=== PATIENT | female | born 1950 | race African-American/Black ===

== ENCOUNTER 2018-08-03 06:52 | Day surgery (SDC) | payer OTHER ==
[~2018-08-03] VITALS: Ht 152.4 cm; Wt 39.0 kg
[2018-08-03] VITALS (8 sets, daily range): BP systolic 102–131; BP diastolic 71–88
--- NOTE | 2018-08-03 06:51 | Anethesia Preoperative Eval ---
Anesthesia Pre-op PMH/ROS General Date of Evaluation: Aug 03, 2018 Time of Evaluation: 06:49 Anesthesiologist: helen ASA Score: ASA 3 Mallampati Score Class I : Soft palate, uvula, fauces, pillars visible Class II: Soft palate, uvula, fauces visible Class III: Soft palate, base of uvula visible Class IV: Only hard plate visible Mallampati Classification: Class II Surgeon: bernarda Diagnosis: weight loss, gerd Surgical Procedure: egd/colonoscopy Anesthesia History: none Family History: no anesthesia problems Allergies: Coded Allergies: RANITIDINE (Verified Allergy, Mild, 08/03/18) DIARRHEA Medications: see eMAR Patient NPO?: Yes Past Medical History Gastrointestinal/Genitourinary: Reports: GERD, other - partial hysterectomy Endocrine: Reports: hypothyroidism PSxH Narrative: partial hysterectomy Anesthesia Pre-op Phys. Exam Physician Exam Last Vital Signs Date Time Temp Pulse Resp B/P (MAP) Pulse Ox O2 Delivery O2 Flow Rate FiO2 08/03/18 07:27 Room Air 08/03/18 07:23 97.0 18 18 128/80 100 Constitutional: NAD Neurologic: CN 2-12 intact Cardiovascular: RRR Respiratory: CTA Gastrointestinal: S/NT/ND Airway Exam Mallampati Score: Class II MO: full Neck: supple TMD: 2fb ROM: full Teeth: missing, broken Anesthesia Pre-op A/P Risk Assessment & Plan Assessment: asa3 Plan: mac Status Change Before Surgery: No Pre-Antibiotics Drug: Paris Perla MD Aug 03, 2018 06:51
[~2018-08-03 06:52] MED LIST: LR 1000ml 1,000 ML IVLG SCH; NASONEX17 GM NASAL; PRILOSEC20 MG ORAL; ROBITUSSIN COU118 M4 PO; SYNTHROID75 MCG ORAL
[2018-08-03] MEDS ORDERED: Atropine Inj 1mg/10ml Syr IV PRN (07:00)
[2018-08-03] MEDS ORDERED: fentaNYL 100 mcg/2 mL IV PRN (07:00)
[2018-08-03] MEDS ORDERED: LR 1000ml 1,000 ML IVLG SCH (07:00)
[2018-08-03] MEDS ORDERED: DiphenhydrAMINE 50mg/ml Inj IVP PRN (07:00)
[2018-08-03] MEDS ORDERED: Midazolam 2mg/2ml Inj IVP PRN (07:00)
[2018-08-03] MEDS ORDERED: PEPCID AC20 M2 PO (07:29)
[2018-08-03] MEDS ORDERED: Lidocaine 1% MPF 10mg/ml 5ml ONE (08:00)
[2018-08-03] MEDS ORDERED: LR 1000ml ONE (08:00)
[2018-08-03] MEDS ORDERED: Propofol 200mg/20ml IV ONE (08:00)
--- NOTE | 2018-08-03 08:25 | Pre-Procedure Note/Attestation ---
Pre-Procedure Note/Attestation Complete Prior to Procedure Planned Procedure: not applicable Procedure Narrative: EGD colon Indications for Procedure Pre-Operative Diagnosis: abd pain , weigh loss Attestation I attest that I discussed the nature of the procedure; its benefits; risks and complications; and alternatives (and the risks and benefits of such alternatives ), prior to the procedure, with the patient (or the patient's legal sales donor recruitment representative). I attest that, if there was a reasonable possibility of needing a blood transfusion, the patient (or the patient's legal sales donor recruitment representative) was given the [facility] standardized written summary, pursuant to the [employer] Blood Safety Act ([place] Health and Safety Code # 1645, as amended). I attest that I re-evaluated the patient just prior to the surgery and that there has been no change in the patient's H&P, except as documented below: Tanika Menard MD Aug 03, 2018 08:25
--- NOTE | 2018-08-03 08:25 | Short Stay Surgery H&P ---
History of Present Illness History of Present Illness Chief Complaint abd pain and weight loss HPI Leah Christianson is a 68 year old female who was admitted on for Abnormal Weight Loss And Abdominal Pain Patient History Allergies: Coded Allergies: RANITIDINE (Verified Allergy, Mild, 08/03/18) DIARRHEA Medication History Scheduled Famotidine (Pepcid Ac), 20 MG PO DAILY, (Reported) Levothyroxine Sodium* (Synthroid*), 75 MCG ORAL DAILY, (Reported) Discontinued Medications Guaifenesin/Dextromethorphan (Robitussin Cough-Chest Dm Liq), 10 ML PO Q4HR Discontinued Reason: Pt stopped taking med Mometasone Furoate (Nasonex), 2 SPRAYS NASAL DAILY Discontinued Reason: Pt stopped taking med Omeprazole (Prilosec), 20 MG ORAL DAILY, (Reported) Discontinued Reason: Pt stopped taking med Physical Exam Vital Signs Last Vital Signs Date Time Temp Pulse Resp B/P (MAP) Pulse Ox O2 Delivery O2 Flow Rate FiO2 08/03/18 07:27 Room Air 08/03/18 07:23 97.0 18 18 128/80 100 Plan Attestation Are the patient's medical conditions optimized for surgery? Tanika Menard MD Aug 03, 2018 08:25
--- NOTE | 2018-08-03 09:46 | Immediate Post-Op Evaluation ---
Immediate Post-Op Evalulation Immediate Post-Op Evalulation Procedure: egd/colonoscopy/bx Date of Evaluation: Aug 03, 2018 Time of Evaluation: 09:32 IV Fluids: 525ml lr Blood Products: none Estimated Blood Loss: negligible Blood Pressure Systolic: 115 Blood Pressure Diastolic: 71 Pulse Rate: 91 Respiratory Rate: 18 O2 Sat by Pulse Oximetry: 100 Temperature (Fahrenheit): 97.9 Pain Score (1-10): 0 Nausea: No Vomiting: No Complications none Patient Status: awake, reacts, patent Hydration Status: adequate Drug: Paris Perla MD Aug 03, 2018 09:46
--- NOTE | 2018-08-03 09:50 | Endoscopy Procedure Note ---
Endoscopy Procedure Note General Indication for Procedure: abd pain , weight loss Procedures Performed: EGD, colonoscopy Operative Findings/Diagnosis: gastric polyp, asc polyp, mild tics, RND Bx Specimen: yes Pt Tolerated Procedure Well: Yes Estimated Blood Loss: none Anesthesia Anesthesiologist: Ashvin Sethi Anesthesia: MAC Medications Medication Given: see anesthesia record Inserted Devices Implant(s) used?: No GI Core Measures 50 yrs or older w/o bx or poly: Not Applicable 10yrs. F/U not recommended: Not Applicable If not recommended, why?: Tanika Menard MD Aug 03, 2018 09:49
--- NOTE | 2018-08-03 09:50 | Brief Operative Note ---
Immediate Post Operative Note Operative Note Chief Complaint: abd pain, weight loss Pre-op Diagnosis: abd pain , weigh loss Procedure: egd/colon Post-op Diagnosis: gastric polyp, asc polyp, mild tics, RND Bx Surgeon: bernarda Anesthesiologist: rosa cowart Anesthesia: MAC Specimen: yes Complications: none Fluids: recorded Estimated Blood Loss: none Drains: none Implant(s) used?: No Tanika Menard MD Aug 03, 2018 09:50
--- NOTE | 2018-08-03 09:59 | 48 Hour Post Anesthesia Eval ---
Post Anesthesia Evaluation Procedure: egd/colonoscopy/bx Date of Evaluation: Aug 03, 2018 Time of Evaluation: 09:34 Blood Pressure Systolic: 130 0: 88 Pulse Rate: 81 Respiratory Rate: 18 Temperature (Fahrenheit): 97.9 O2 Sat by Pulse Oximetry: 100 Airway: patent Nausea: No Vomiting: No Pain Intensity: 0 Hydration Status: adequate Cardiopulmonary Status: stable Mental Status/LOC: patient returned to baseline Post-Anesthesia Complications: none Follow-up care needed: N/A Paris Alaniz MD Aug 03, 2018 09:59
--- NOTE | 2018-08-03 21:00 | Procedure Note ---
DATE OF PROCEDURE: 08/03/2018 PROCEDURE: Upper gastroendoscopy with biopsy as well as colonoscopy with biopsy. SURGEON: Tanika Menard M.D. ANESTHESIA: Please see the separate anesthesiologist notes for details. PRE-ENDOSCOPIC DIAGNOSIS: 1. History of abdominal pain. 2. Weight loss. POST-ENDOSCOPIC DIAGNOSES: 1. Diminutive gastric polyp, status post biopsy and removal. 2. Status post random biopsies of the duodenum and antrum. 3. Normal terminal ileum 10 cm, status post biopsy. 4. Status post random biopsies of the right and left colon. 5. Occasional sigmoid diverticulosis. DESCRIPTION OF PROCEDURE: The procedure, its risks, indications, alternatives, and possible complications were explained and informed consent was obtained. The diagnostic upper endoscope was introduced through the oropharynx and advanced to the duodenum. Biopsies were performed as described above. The rectal exam was done and the colonoscope was introduced in the rectum and advanced to the terminal ileum. The biopsies of the terminal ileum, right colon, and left colon were sent to pathology for review. Occasional sigmoid diverticulosis was seen as there was a diminutive polyp in the proximal ascending colon, which was removed. No findings were seen visually on either upper and lower examination to explain the patient's weight loss. The patient was sent to recovery in good condition. COMPLICATIONS: None. RECOMMENDATIONS: 1. Follow up biopsy results. 2. Outpatient followup. Tanika Menard M.D. DR: BIANCA JOB#: [id number] CC:
== END 2018-08-03 11:25 | disposition home or self-care (01) ==
LOC: GAS 06:52
DX: R10.9 Unspecified abdominal pain (principal); R63.4 Abnormal weight loss; Z68.1 Body mass index [BMI] 19.9 or less, adult; K57.90 Diverticulosis of intestine, part unspecified, without perforation or abscess without bleeding; K31.7 Polyp of stomach and duodenum; D12.2 Benign neoplasm of ascending colon; Z88.8 Allergy status to other drugs, medicaments and biological substances; K21.9 Gastro-esophageal reflux disease without esophagitis; Z90.710 Acquired absence of both cervix and uterus; E03.9 Hypothyroidism, unspecified
CPT/HCPCS: 43239; 45380; J2704; 94003; 94150